=== PATIENT | female | born 1975 | race African-American/Black ===

== ENCOUNTER 2018-07-21 13:15 | Emergency (ER) | payer OTHER ==
[2018-07-21 13:41] VITALS: BP 119/94; PULSE 61; TEMP 99.1; BMI 31.4
--- NOTE | 2018-07-21 14:21 | PDOC ---
History of Present Illness - General Chief Complaint: Back Pain Stated Complaint: BACK PAIN Time Seen by Provider: 07/21/18 14:10 History Source: Patient Exam Limitations: Clinical Condition - History of Present Illness Initial Comments: 07/21/18 14:17 Patient with history of bulging disc present with complain of sudden onset of mid back pain which she describes as cramping pain since yesterday with no other symptoms. Patient also report missing her menstrual period last month. Denies recent trauma or injury to back. Timing/Duration: 24 hours Past History - Past Medical History Allergies/Adverse Reactions: Allergies Allergy/AdvReac Type Severity Reaction Status Date / Time shellfish derived Allergy Intermediate Itching Verified 07/21/18 13:36 tramadol AdvReac Intermediate confusion Verified 07/21/18 13:36 Home Medications: Ambulatory Orders NK [No Known Home Medication] 07/21/18 Asthma: No Cancer: No Cardiac Disorders: No COPD: No CHF: No Diabetes: No GI Disorders: No Disorders: No HTN: No Hypercholesterolemia: No Liver Disease: No Seizures: No Thyroid Disease: No Other medical history: DENIES. - Surgical History Abdominal Surgery: Yes (liposuction 2004) Orthopedic Surgery: Yes (carpal release 2006) - Suicide/Smoking/Psychosocial Hx Smoking History: Current every day smoker Have you smoked in the past 12 months: Yes Number of Cigarettes Smoked Daily: 3 Information on smoking cessation initiated: No Hx Alcohol Use: No Drug/Substance Use Hx: Yes Substance Use Type: Marijuana Hx Substance Use Treatment: No Review of Systems - Review of Systems Able to Perform ROS?: Yes Is the patient limited Mongolian proficient: No Constitutional: No: Chills, Fever HEENTM: No: Symptoms Reported Respiratory: No: Symptoms reported, Cough Cardiac (ROS): No: Chest Pain, Lightheadedness, Palpitations, Chest Tightness ABD/GI: Yes: Nausea. No: Constipated, Diarrhea, Vomiting Musculoskeletal: Yes: See HPI, Back Pain (mid back), Muscle Pain (mid back pain) . No: Muscle Weakness, Joint Stiffness All Other Systems: Reviewed and Negative *Physical Exam - Vital Signs Last Vital Signs Temp Pulse Resp BP Pulse Ox 99.1 F 61 19 119/94 100 07/21/18 13:36 07/21/18 13:36 07/21/18 13:36 07/21/18 13:36 07/21/18 13:36 - Physical Exam Comments: 07/21/18 14:18 GENERAL: Well developed, well nourished. Awake and alert. No acute distress. MUSCULOSKELETAL : Moderate discomfort point tenderness to lumbar spine of L2 and paravertebral muscle of L2-L5. Free range of motion of hip and lower back EXTREMITIES: No cyanosis. No clubbing. No edema. No calf tenderness. SKIN: Warm and dry. Normal capillary refill. No rashes. No jaundice. NEUROLOGICAL: Alert, awake, appropriate. No motor deficits in the lower extremities. Gait is normal without ataxia. PSYCHIATRIC: Cooperative. Good eye contact. Appropriate mood and affect. General Appearance: Yes: Nourished, Appropriately Dressed. No: Apparent Distress ED Treatment Course - RADIOLOGY Radiology Studies Ordered: Category Date Time Status SPINE-LUMBAR ONLY [RAD] Stat Radiology 07/21/18 14:10 Ordered Medical Decision Making - Medical Decision Making 07/21/18 14:20 Patient with history of bulging disc present with complain of mid back pain since yesterday without trauma or injury. Patient also with complain of nausea and missing last measure last month. Exam significant for tenderness over lumbar spine. HCG ordered to rule out . X-ray of lumbar spine if negative hCG 07/21/18 14:47 HCG positive. X-ray canceled. Tylenol 1 g by mouth for pain. Patient be discharged with orthopedist follow-up and follow-up with COMPUTER ARCHITECT *DC/Admit/Observation/Transfer Diagnosis at time of Disposition: test positive Back pain Qualifiers: Back pain location: thoracic back pain Chronicity: acute Back pain laterality: midline Qualified Code(s): M54.6 - Pain in thoracic spine - Discharge Dispostion Disposition: HOME Condition at time of disposition: Stable Decision to Admit order: No - Referrals Referrals: Isreal Arthur MD [Staff Physician] - Pratik Clark MD [Staff Physician] - - Patient Instructions Printed Discharge Instructions: Common Discomforts and Bodily Changes During Additional Instructions: Take Tylenol as needed for pain. Apply heat to back over area of pain 2-3 times a day for 5-10 minutes. Follow-up will referred OVEN HEATER and orthopedics for symptoms - Post Discharge Activity
[2018-07-21] MEDS ORDERED: ACETAMINOPHEN 500 MG TABLET (FP) PO ONE (14:47)
[2018-07-21] MEDS ORDERED: ACETAMINOPHEN 500 MG TABLET (FP) ONE (14:50)
== END 2018-07-21 15:19 | disposition home or self-care (01) ==
LOC: JERFT 13:15
DX: O26.891 Other specified pregnancy related conditions, first trimester (principal); M54.6 Pain in thoracic spine; Z3A.01 Less than 8 weeks gestation of pregnancy
CPT/HCPCS: 36415; 84702; 84703; 99281-25

== ENCOUNTER 2018-08-05 15:41 | Emergency (ER) | payer OTHER ==
[2018-08-05 15:52] VITALS: BP 117/78; PULSE 89; TEMP 99; BMI 30.5
--- NOTE | 2018-08-05 16:02 | PDOC ---
Rapid Medical Evaluation Chief Complaint: Pain, Acute Medical Evaluation: Allergies Allergy/AdvReac Type Severity Reaction Status Date / Time shellfish derived Allergy Intermediate Itching Verified 08/05/18 15:47 tramadol AdvReac Intermediate confusion Verified 08/05/18 15:47 Vital Signs Temp Pulse Resp BP Pulse Ox 99 F 89 16 117/78 100 08/05/18 15:48 08/05/18 15:48 08/05/18 15:48 08/05/18 15:48 08/05/18 15:48 08/05/18 15:57 I have performed a brief in-person evaluation of this patient. The patient presents with a chief complaint of: 9wks with right knee pain s/p fall today Pertinent physical exam findings: tender to anterior right knee I have ordered the following: right knee x-rays The patient will proceed to the ED for further evaluation. Discharge Disposition - Diagnosis Right knee pain Qualifiers: Chronicity: acute Qualified Code(s): M25.561 - Pain in right knee - Referrals - Patient Instructions - Post Discharge Activity
--- NOTE | 2018-08-05 16:26 | PDOC ---
History of Present Illness - General Chief Complaint: Pain, Acute Stated Complaint: INJURY Time Seen by Provider: 08/05/18 16:17 - History of Present Illness Initial Comments: 43-year-old 11 week gravid female without comorbidities presents for evaluation of right knee pain after a fall going up the steps yesterday. She has no other symptoms besides right knee pain. 08/05/18 16:23 Past History - Past Medical History Allergies/Adverse Reactions: Allergies Allergy/AdvReac Type Severity Reaction Status Date / Time shellfish derived Allergy Intermediate Itching Verified 08/05/18 15:47 tramadol AdvReac Intermediate confusion Verified 08/05/18 15:47 Home Medications: Ambulatory Orders NK [No Known Home Medication] 07/21/18 Asthma: No Cancer: No Cardiac Disorders: No COPD: No CHF: No Diabetes: No GI Disorders: No Disorders: No HTN: No Hypercholesterolemia: No Liver Disease: No Seizures: No Thyroid Disease: No - Surgical History Abdominal Surgery: Yes (liposuction 2004) Orthopedic Surgery: Yes (carpal release 2006) - Suicide/Smoking/Psychosocial Hx Smoking History: Current some day smoker Have you smoked in the past 12 months: Yes Number of Cigarettes Smoked Daily: 2 Information on smoking cessation initiated: Yes 'Breaking Loose' booklet given: 08/05/18 Hx Alcohol Use: No Drug/Substance Use Hx: Yes Substance Use Type: Marijuana Hx Substance Use Treatment: No Review of Systems - Review of Systems Musculoskeletal: Yes: See HPI, Joint Pain All Other Systems: Reviewed and Negative *Physical Exam - Vital Signs Last Vital Signs Temp Pulse Resp BP Pulse Ox 99 F 89 16 117/78 100 08/05/18 15:48 08/05/18 15:48 08/05/18 15:48 08/05/18 15:48 08/05/18 15:48 - Physical Exam Comments: 08/05/18 16:24 Right knee skin color and temperature are normal range of motion 0-90 with pain at terminal flexion. Full nonpainful range of motion of the hip and ankle. No instability. Mild posterior medial joint line tenderness. No other areas of tenderness. No patellofemoral crepitation. Negative straight leg raise test. Thigh and calf is soft and nontender. She's neurovascular intact. *DC/Admit/Observation/Transfer Diagnosis at time of Disposition: Knee contusion Right knee pain Qualifiers: Chronicity: acute Qualified Code(s): M25.561 - Pain in right knee - Discharge Dispostion Disposition: HOME Condition at time of disposition: Stable Decision to Admit order: No - Referrals Referrals: Artur Herron MD [Staff Physician] - - Patient Instructions Printed Discharge Instructions: Contusion Additional Instructions: He may weight-bear as tolerated with use of crutches. Please return to the emergency room should symptoms worsen or go unresolved. Please follow-up with orthopedic surgery for further evaluation and treatment options. Follow-up with orthopedic surgery one to 2 days. Make only take Tylenol for pain because you' re . - Post Discharge Activity
== END 2018-08-05 16:35 | disposition home or self-care (01) ==
LOC: JERFT 15:41
DX: M25.561 Pain in right knee (principal); W10.9XXA Fall (on) (from) unspecified stairs and steps, initial encounter; Y93.89 Activity, other specified; Y92.89 Other specified places as the place of occurrence of the external cause; S80.01XA Contusion of right knee, initial encounter; F17.210 Nicotine dependence, cigarettes, uncomplicated
CPT/HCPCS: 73562-TC-RT-FY; 99281-25

== ENCOUNTER 2018-10-13 22:43 | Emergency (ER) | payer OTHER ==
[2018-10-13 23:02] VITALS: BMI 33.3
--- NOTE | 2018-10-13 23:56 | PDOC ---
History of Present Illness - General Chief Complaint: Ear Problem Stated Complaint: UNABLE TO HEAR FROM LEFT EAR Time Seen by Provider: 10/13/18 23:38 History Source: Patient Exam Limitations: No Limitations - History of Present Illness Initial Comments: 10/13/18 23:51 Mrs. Perez is a 43-year-old female with no significant past medical history who presents emergency department with a complaint of difficulty hearing out of the left ear. Patient states her symptoms began several hours prior to arrival in the emergency department. She awoke from a nap with an inability to hear out of her left ear. Patient states that over the past few weeks she's had a congested feeling in the left ear. When she lay down to sleep she would notice difficulty hearing but when she sat up it would improve. Tonight despite sitting up she cannot hear out of the left ear. No tinnitus. No fevers or chills. No left ear pain. No direct trauma. No swimming. No prior episodes like this. PMH: Denies PSH: , liposuction Medication: Denies Social: Denies alcohol, drug, cigarette use ROS: GENERAL/CONSTITUTIONAL: No: fever, chills, weakness, loss of appetite. HEAD, EYES, EARS, NOSE AND THROAT: No: change in vision, ear pain, discharge, sore throat, throat swelling. CARDIOVASCULAR: No: chest pain, lightheadedness, palpitations, syncope RESPIRATORY: No: cough, shortness of breath, wheezing, hemoptysis, stridor. GASTROINTESTINAL: No: nausea, vomiting, diarrhea, abdominal cramping, rectal bleeding, constipation. GENITOURINARY: No: dysuria, hematuria, frequency, urgency, flank pain. MUSCULOSKELETAL: No: back pain, neck pain, joint pain, muscle swelling or pain SKIN AND BREASTS: No: lesions, pallor, rash or easy bruising. NEUROLOGIC: No: headache, vertigo, paresthesias, weakness ENDOCRINE: No: unexplained weight gain or loss HEMATOLOGIC/LYMPHATIC: No: anemia, easy bleeding, swelling nodes. PE: GENERAL: The patient is in no acute distress. HEAD: Normal with no signs of trauma. EYES: PERRLA, EOMI, sclera anicteric, conjunctiva clear. ENT: Ears normal, nares patent, oropharynx clear without exudates. Moist mucous membranes. NECK: Normal range of motion, supple without lymphadenopathy, JVD, or masses. LUNGS: Breath sounds equal, clear to auscultation bilaterally. No wheezes, and no crackles. HEART:Regular rate and rhythm, normal S1 and S2 without murmur, rub or gallop. ABDOMEN: Soft, nontender, normoactive bowel sounds. No guarding, no rebound. No masses palpable. EXTREMITIES: Normal range of motion, no edema. No clubbing or cyanosis. No erythema, or tenderness. NEUROLOGICAL: Cranial nerves II through XII grossly intact. Normal speech. No focal neurological deficits. MUSCULOSKELETAL: Back non-tender to palpation, no CVA tenderness SKIN: Warm, Dry, normal turgor, no rashes or lesions noted. Past History - Past Medical History Allergies/Adverse Reactions: Allergies Allergy/AdvReac Type Severity Reaction Status Date / Time shellfish derived Allergy Intermediate Itching Verified 10/13/18 23:01 tramadol AdvReac Intermediate confusion Verified 10/13/18 23:01 Home Medications: Ambulatory Orders Carbamide Peroxide 6.5% [Debrox -] 10 drop BID PRN 4 Days #1 bottle 10/13/18 Asthma: No Cancer: No Cardiac Disorders: No COPD: No CHF: No Diabetes: No GI Disorders: No Disorders: No HTN: No Hypercholesterolemia: No Liver Disease: No Seizures: No Thyroid Disease: No - Surgical History Abdominal Surgery: Yes (liposuction 2004) Orthopedic Surgery: Yes (carpal release 2006) - Suicide/Smoking/Psychosocial Hx Smoking History: Current every day smoker Have you smoked in the past 12 months: Yes Number of Cigarettes Smoked Daily: 3 Information on smoking cessation initiated: No 'Breaking Loose' booklet given: 08/05/18 Hx Alcohol Use: No Drug/Substance Use Hx: No Substance Use Type: None Hx Substance Use Treatment: No *Physical Exam - Vital Signs Last Vital Signs Temp Pulse Resp BP Pulse Ox 98.6 F 98 H 18 110/65 98 10/13/18 22:58 10/13/18 22:58 10/13/18 22:58 10/13/18 22:58 10/13/18 22:58 Moderate Sedation - Procedure Monitoring Vital Signs: Procedure Monitoring Vital Signs Temperature 98.6 F 10/13/18 22:58 Pulse Rate 98 H 10/13/18 22:58 Respiratory Rate 18 10/13/18 22:58 Blood Pressure 110/65 10/13/18 22:58 O2 Sat by Pulse Oximetry (%) 98 10/13/18 22:58 Medical Decision Making - Medical Decision Making 10/13/18 23:56 Examination is consistent with cerumen impaction. Will plan to discharge to home. Will ask patient to use Debrox *DC/Admit/Observation/Transfer Diagnosis at time of Disposition: Impacted cerumen of left ear - Discharge Dispostion Disposition: HOME Condition at time of disposition: Stable Decision to Admit order: No - Referrals Referrals: Yunior Bell MD [Staff Physician] - - Patient Instructions Printed Discharge Instructions: DI for Cerumen Impaction Additional Instructions: Thank you for coming in to the ER today Please use Debrox to remove the build up of wax in the left ear Please monitor for fevers, chills, pain in the left ear If your ear does not improve, please follow up with an ENT Return to the Er for any other concerns or complaints - Post Discharge Activity
[2018-10-14 01:09] VITALS: BP 116/71; PULSE 85; TEMP 98.5
== END 2018-10-14 01:15 | disposition home or self-care (01) ==
LOC: JER 22:43
DX: H61.22 Impacted cerumen, left ear (principal)
CPT/HCPCS: 99282-25

== ENCOUNTER 2019-01-27 15:00 | Inpatient (IN) | payer OTHER ==
[2019-01-27] MEDS ORDERED: ELECTROLYTE-148 SOLN 500 ML IV ONE (15:58)
[2019-01-27] MEDS ORDERED: CITRIC ACID/SODIUM CITRATE 30 ML UNIT-DOSE CUP PO ONE (15:58)
[2019-01-27] MEDS ORDERED: ELECTROLYTE-148 SOLN 1,000 ML IV SCH (16:00)
--- NOTE | 2019-01-27 16:06 | HP ---
Past Medical History - Admission Chief Complaint: RLTCS, BTL History of Present Illness: 43yo @ 38wks here for RLTCS, BTL Preg c/b GHTN- no meds, recently developed at 36 weeks. Last PIH labs normal 2 days ago. Previous Pr/Cr ratio negative Denies VB/LOF. No ctx. +FM. No NOVOA, no N/V. No RUQ pain. 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 Weeks Gestation by Dates: 38.1 ...EDC by Sono: 02/09/19 - Past Surgical History Past Surgical History: Yes: Hx Myomectomy: No Hx Transabdominal Cerclage: No - Smoking History Smoking history: Current every day smoker Have you smoked in the past 12 months: Yes Aproximately how many cigarettes per day: 3 - Alcohol/Substance Use Hx Alcohol Use: No Home Medications - Allergies Allergies/Adverse Reactions: Allergies Allergy/AdvReac Type Severity Reaction Status Date / Time shellfish derived Allergy Intermediate Itching Verified 01/27/19 15:55 Gadolinium-Containing AdvReac Intermediate Vomiting Verified 01/27/19 15:55 Contrast Medi tramadol AdvReac Intermediate confusion Verified 01/27/19 15:55 - Home Medications Home Medications: Ambulatory Orders NK [No Known Home Medication] 10/14/18 Family Disease History - Family Disease History Family Disease History: Diabetes: Mother (living, ), Heart Disease: Mother, Other: Father (living, ), Mother, Brother (one -living - healthy), Sister (one - living - hx etoh/drugs,Crohns), Son (age 9), Daughter (age 14) Review of Systems - Review of Systems Constitutional: denies: No Symptoms, Chills, Diaphoresis, Fever, Lethargy, Loss of Appetite, Malaise, Night Sweats, Unintentional Wgt. Loss, Weakness, Other Neck: denies: No Symptoms, Decreased ROM, Lumps, Pain on Movement, Stiffness, Swollen Glands, Tenderness, Other Cardiovascular: denies: No Symptoms, Chest Pain, Edema, Palpitations, Shortness of Breath, Other Respiratory: denies: No Symptoms, Cough, Exercise Intolerance, Hemoptysis, Orthopnea, PND, Snoring, SOB, SOB on Exertion, Wheezing, Other Gastrointestinal: denies: No Symptoms, Abdominal Pain, Bloating, Constipation, Diarrhea, Dysphagia, Indigestion, Melena, Nausea, Rectal Bleeding, Vomiting, Vomiting Blood, Other Genitourinary: denies: No Symptoms, Burning, Discharge, Dysuria, Flank Pain, Frequency, Hematuria, Incontinence, Lesions, Menses, Pain, Testicular Mass, Testicular Pain, Testicular Swelling, Urgency, Vaginal Bleeding, Other Physical Exam - Maternity Constitutional: Yes: Well Nourished Eyes: Yes: WNL, Conjunctiva Clear, EOM Intact - Abdominal Exam/OB Number of Fetuses: Single Presentation: Vertex Contractions: No Regularity: Irritability Intensity: Unaware Category: I Accelerations: Uniform Decelerations: None - Vaginal Exam/OB Vaginal Bleediing: No Speculum Exam: No Amniotic Membrane Status: Intact Presentation: Vertex/Position - Physical Exam Edema: No Problem List - Problems (1) Gestational hypertension Code(s): O13.9 - GESTATIONAL HTN W/O SIGNIFICANT PROTEINURIA, UNSP TRIMESTER Assessment/Plan 43yo @ 38.1wks here for ALEX MYERS c/b Gestational HTN Admit to L&D NPO, IVFs Ancef SCDs Will monitor BPs, may need BP meds PP Risk of procedure including bleeding, infections, injury to bladder/bowel/tubes/ ovaries/vessels and risk of permanency with tubal ligation reviewed. All questions answered. Consent signed. Proceed to OR for RLTCS, BTAmbrose Mendoza MD
[2019-01-27 16:28] VITALS: BMI 39.4
[2019-01-27] MEDS ORDERED: ONDANSETRON 4 MG/2 ML VIAL IVPUSH PRN (17:25)
[2019-01-27] MEDS ORDERED: morphine SULFATE/Preservative Free 0.5 MG/ML (1cc Syringe) ONE (17:44)
[2019-01-27] MEDS ORDERED: KETOROLAC TROMETHAMINE 30 MG/1 ML VIAL ONE (18:05)
[2019-01-27] MEDS ORDERED: PHENYLEPHRINE HCL 10 MG/1 ML SINGLE DOSE VIAL ONE (18:26)
[2019-01-27] MEDS ORDERED: MIDAZOLAM HCL 2 MG/2 ML SINGLE DOSE VIAL ONE ×2 (18:32)
[2019-01-27] MEDS ORDERED: PROPOFOL 20 ML ONE (18:55)
[2019-01-27] MEDS ORDERED: METHYLERGONOVINE MALEATE 0.2 MG/1 ML AMP IM PRN (19:10)
--- NOTE | 2019-01-27 19:13 | OP ---
Operative Note - Note: Operative Date: 01/27/19 Pre-Operative Diagnosis: 38weeks gestation, Gestational HTN, prior C/S x 2, desires permanent sterilization Operation: RLTCS, BTL Findings: VFI, VASILE position. No nuchal or meconium. Apgars 9/9. Weight pending. Normal tubes and ovaries bilaterally Surgeon: Pati Mendoza Manager Mining: Buddy Sexton Anesthesiologist/BEATER BOSS: Andriy Dolan Anesthesia: Spinal Estimated Blood Loss (mls): 500 Drains, Volume Out (mls): 100 Operative Report Dictated: Yes
[2019-01-27] MEDS ORDERED: OXYTOCIN 20 UNITS in 0.9% NS 20 UNIT/1,000 ML INFUS.BAG IV SCH (19:15)
[2019-01-27] MEDS ORDERED: OXYTOCIN 20 UNITS in 0.9% NS 20 UNIT/1,000 ML INFUS.BAG IV ONE (20:08)
[2019-01-27] MEDS: FERROUS SO4 325 MG TABLET (FP) PO SCH (23:06)
[2019-01-28] MEDS: IBUPROFEN 600 MG TABLET (FP) PO PRN ×3 (08:09→22:20)
[2019-01-28] MEDS: ACETAMINOPHEN 325 MG TABLET (FP) PO PRN ×3 (08:09→22:20)
[2019-01-28 08:21] LABS: BASO % 0.3 % (0-2.0); EOS % 0.5 % (0-4.5); HEMATOCRIT 25.4 % (32.4-45.2); HEMOGLOBIN 8.7 GM/dL (10.7-15.3); LYMPH % 13.6 % (8-40); MCH 29.9 pg (25.7-33.7); MCHC 34.2 g/dl (32.0-36.0); MEAN CELL VOLUME 87.5 fl (80-96); MONO % 8.4 % (3.8-10.2); NEUT % 77.2 % (42.8-82.8); PLATELET COUNT 237 K/MM3 (134-434); RDW 14.9 % (11.6-15.6); WHITE BLOOD COUNT 10.4 K/mm3 (4.0-10.0)
--- NOTE | 2019-01-28 09:03 | PN ---
Post Progress Note Post Day: 1 Type of Delivery: Repeat C/S Vital Signs: Vital Signs Temperature 98.1 F 01/28/19 06:04 Pulse Rate 77 01/28/19 06:04 Respiratory Rate 20 01/28/19 07:00 Blood Pressure 142/84 01/28/19 06:04 O2 Sat by Pulse Oximetry (%) 97 01/27/19 20:15 Uterus: Yes: Fundus below umbilicus Incision: Yes: Dressing dry and intact, Reynold intact Abdomen/GI: Yes: Abdomen soft Lochia: Yes: Rubra Lochia, amount: Small Extremities: Yes: Calves non-tender Problem List - Problems (1) Gestational hypertension Code(s): O13.9 - GESTATIONAL HTN W/O SIGNIFICANT PROTEINURIA, UNSP TRIMESTER Assessment/Plan 43yo s/p RLTCS, BTL c/b Gestational HTN Routine PP care OOB, ambulate Vitals reviewed, cont to monitor Labs pending Anticipate d/c to home by POD#4 Jayne Mendoza MD
[2019-01-28] MEDS: PRENATAL VITAMINS W/ FOLIC ACID TABLET (FP) PO SCH (09:05)
[2019-01-28] MEDS: FERROUS SO4 325 MG TABLET (FP) PO SCH ×2 (09:05→22:20)
--- NOTE | 2019-01-28 11:28 | PN ---
Progress Note (short form) - Note Progress Note: Post op day#1.S/P C Section under spinal anesthesia with duramorph uneventful.Patient stable and has little pain for which she is on medication.no any anesthesia related problem.Patient Dc from the anesthesia care.
--- NOTE | 2019-01-28 13:19 | OP ---
DATE OF OPERATION: 01/27/2019 PREOPERATIVE DIAGNOSES: A 38-week gestation, gestational hypertension, prior section x2, and desires permanent sterilization. POSTOPERATIVE DIAGNOSES: A 38-week gestation, gestational hypertension, prior section x2, and desires permanent sterilization. PROCEDURE: Repeat low transverse section, bilateral tubal ligation. ANESTHESIA: Spinal. SURGEON: Pati Mendoza MD SAND MILL OPERATOR CORE SAND: SUMA Sutton ANESTHESIOLOGIST: Andiry Dolan MD FINDINGS: Viable male infant, VASILE position. No nuchal. No meconium. Apgars 9 and 9. Weight pending. Normal tubes and ovaries bilaterally. ESTIMATED BLOOD LOSS: 500. INTRAVENOUS FLUIDS: Per anesthesia record. URINE OUTPUT: Clear urine 100 mL at the end of the procedure. COMPLICATIONS: None. CONDITION: Stable to recovery room. NATURE OF THE PROCEDURE: After the appropriate consents were signed, patient was taken to the operating room where spinal anesthesia was administered. Fiore catheter was inserted prior to entry into the operating room. The abdomen was prepped and draped in the normal sterile fashion. Timeout was performed, confirming correct patient and procedure. Pfannenstiel skin incision was made through the prior incision and carried down to the underlying layers until the fascia was nicked in the midline. Fascia was then extended laterally with the Qiu scissors. The inferior aspect of the fascia was grasped with the Cal clamps, tented upwards, and the rectus muscles were dissected off bluntly. Attention was then paid to the superior aspect which was taken down in a similar fashion. The peritoneum was entered cautiously as there were adhesions. The peritoneum was grasped with the hemostats x2, tented upwards, transilluminated with the Metzenbaum scissors. Noted to be clear, and then nicked in the midline and then extended manually. Bladder blade was inserted. There was not sufficient space for delivery. The rectus muscles had to be further using the Bovie with good hemostasis. The vesicouterine reflection was grasped with the smooth forceps, tented upwards , nicked with the Metzenbaum's, then extended laterally with the Metzenbaum's. Bladder flap was then created digitally. The bladder blade was reinserted. The uterus was incised in a low transverse fashion. Clear amniotic fluid was noted. Head was delivered without any difficulty, as was the remaining body. The cord was clamped and cut, and the infant was handed off to the awaiting pediatric staff. The placenta was then removed manually. The uterus was cleared of all clot and debris. We were unable to exteriorize the uterus secondary to space. The uterine incision was closed in a single imbricating layer with a 1-0 Vicryl with good hemostasis. Attention was then paid to the adnexa for the tubal ligation. The left fallopian tube was grasped with the Orland, carried through to the fimbriated edges, and grasped again in the midline and was suture ligated using a 1-0 plain in the modified Esther fashion. Tubal segment was ligated with the Metzenbaum scissors. The tubal stumps were cauterized with the Bovie. Tubal stump was sent off for pathology. Attention was then paid to the right fallopian tube which was taken down in a similar fashion. Both bite sites were noted to be hemostatic. Attention was then paid back to the hysterotomy which was also noted to be hemostatic. Bladder blade was removed. The rectus muscles were reapproximated with a 2-0 chromic. The fascia was reapproximated with a 0 Vicryl. The skin was closed with carey. Sponge count and needle counts were correct x3. Patient received 2 g of Ancef at the start of the procedure. MD ELSIE GIBBONS/[id number] MTDD
[2019-01-28] MEDS ORDERED: BISACODYL 10 MG SUPP.RECT RC PRN (19:10)
[2019-01-28] MEDS: SIMETHICONE 80 MG TAB.CHEW (FP) PO PRN (22:20)
--- NOTE | 2019-01-29 06:25 | PN ---
Progress Note (short form) - Note Progress Note: pod 2 s/p c/s doing well, no c./o, no dizziness , no excess vaginal bleeding, c/ o head ache at back of her head with walking CBC, BMP 01/28/19 07:30 Last Vital Signs Temp Pulse Resp BP Pulse Ox 98.7 F 92 H 20 133/86 97 01/29/19 06:00 01/29/19 06:00 01/29/19 06:00 01/29/19 06:00 01/27/19 20:15 abdomen soft, no distension, , no cvc uterus firm lochia mild no calf tenderness plan ambulate, cbc increase po fluid anesthesia evaluation r/o spinal headache
[2019-01-29] MEDS: IBUPROFEN 600 MG TABLET (FP) PO PRN ×2 (07:28→21:10)
[2019-01-29] MEDS: SIMETHICONE 80 MG TAB.CHEW (FP) PO PRN (07:28)
[2019-01-29] MEDS: oxyCODONE HCL 5 MG TABLET PO PRN ×3 (07:31→21:11)
[2019-01-29] MEDS: PRENATAL VITAMINS W/ FOLIC ACID TABLET (FP) PO SCH (10:09)
[2019-01-29] MEDS: FERROUS SO4 325 MG TABLET (FP) PO SCH ×2 (10:09→21:10)
--- NOTE | 2019-01-29 11:51 | PN ---
Progress Note (short form) - Note Progress Note: 43F C section under spinal anesthetic (25g needle) c/o postural posterior headache. Pt has history of headaches and known history of cervical spine stenosis. Pt was complaining of headache pre operatively prior to spinal. Although it is possible that she has a post dural puncture headache, it is one of several possible reasons for her current presentation. I recommend trying conservative measures first - bedrest, lying flat, stool softeners, caffeine, fioricet.
[2019-01-29] MEDS: ACETAMINOPHEN/CAFFEINE/BUTALBITAL 1 TAB PO PRN ×2 (12:09→19:15)
[2019-01-29 14:59] LABS: BASO % 0.7 % (0-2.0); EOS % 1.4 % (0-4.5); HEMATOCRIT 25.3 % (32.4-45.2); HEMOGLOBIN 8.5 GM/dL (10.7-15.3); LYMPH % 22.9 % (8-40); MCH 29.9 pg (25.7-33.7); MCHC 33.7 g/dl (32.0-36.0); MEAN CELL VOLUME 88.7 fl (80-96); MEAN PLT VOLUME 7.8 fl (7.5-11.1); MONO % 10.1 % (3.8-10.2); NEUT % 64.9 % (42.8-82.8); PLATELET COUNT 260 K/MM3 (134-434); RBC 2.85 M/mm3 (3.60-5.2); WHITE BLOOD COUNT 11.2 K/mm3 (4.0-10.0)
[2019-01-29] MEDS ORDERED: LABETALOL HCL 200 MG TABLET (FP) PO PRN (23:14)
[2019-01-30] MEDS: ACETAMINOPHEN/CAFFEINE/BUTALBITAL 1 TAB PO PRN ×3 (02:01→17:17)
[2019-01-30 07:35] LABS: BASO % 0.8 % (0-2.0); EOS % 0.8 % (0-4.5); HEMATOCRIT 24.3 % (32.4-45.2); HEMOGLOBIN 8.3 GM/dL (10.7-15.3); LYMPH % 19.1 % (8-40); MCH 29.8 pg (25.7-33.7); MEAN CELL VOLUME 87.8 fl (80-96); MEAN PLT VOLUME 7.8 fl (7.5-11.1); MONO % 8.8 % (3.8-10.2); NEUT % 70.5 % (42.8-82.8); PLATELET COUNT 262 K/MM3 (134-434); RBC 2.77 M/mm3 (3.60-5.2); WHITE BLOOD COUNT 9.7 K/mm3 (4.0-10.0)
[2019-01-30] MEDS: PRENATAL VITAMINS W/ FOLIC ACID TABLET (FP) PO SCH (10:19)
[2019-01-30] MEDS: FERROUS SO4 325 MG TABLET (FP) PO SCH ×2 (10:19→22:18)
[2019-01-30] MEDS: oxyCODONE HCL 5 MG TABLET PO PRN ×2 (12:28→20:11)
--- NOTE | 2019-01-30 15:36 | PN ---
Progress Note (short form) - Note Progress Note: pod 3 s/p c/s , still c/o headache, no blurred vision CBC, BMP 01/30/19 06:00 Last Vital Signs Temp Pulse Resp BP Pulse Ox 97.6 F 95 H 20 143/84 97 01/30/19 06:00 01/30/19 06:00 01/30/19 06:00 01/30/19 06:00 01/27/19 20:15 abdomen soft, no distension, no cva incision dry, clean, healin well,\ no calf tenderness impression, headache, possible related to spinal tap seen by anesthesia, advised conservative management plan neuro consult mild elevation of BP will get renal to see here anemia, no dizziness , advised iron, vit
--- NOTE | 2019-01-30 16:18 | CONSULT ---
Consult - text type - Consultation Consultation Note: NEUROLOGY CONSULTATION is greatly appreciated: Events reviewed and discussed with Dr. Clark and RN's. This 43 yo RH m woman is 3 days post- her 3rd child by and epidural anesthesia. PMH of episodic headaches through most of her adult life with occasional "migraines" with nausea and photophobia. Can see "black dots or stars." One day post- she developed a pressing headache over the frontal and occipital region with episodic photophobia. No nausea. Worse when sitting up. Resolves when she lays down. Resting in bed now without c/o headache. Did "see dots" earlier today. EXAM: Obese. Neck supple. Spinal site clear. BP up to 157 systolic NEURO: MS/Speech: Normal CN: II-XII: normal Motor: Nor drift or tremor. Normal strength, bulk tone and reflexes. Toes downgoing Coord: Normal Sensory: Normal Gait: Deferred. IMP: Normal neurological exam Positional qualilty of headache supports a spinal headache. Underlying Migraine Disorder. SUGGEST: Continue bedrest and analgesics. If headache recurs try Sumatriptan 6 mg SQ or 100 mg PO. Response to Rx would strongly support a migrainous etiology. MRI of brain and blood patch Agree with beta-alexandra (Try Nadolol 40 mg PO qd) for both HTN and migraine prophylaxis. Thank you very much, Barrington Lopez MD
[2019-01-30 16:34] LABS: EPI CELLS 3.2 /HPF (0-5); HYALINE CASTS 1 /hpf (0-8); PH,URINE 7.5 (5.0-8.0); URINE APPEARANCE CLEAR; URINE BACTERIA 6.084 /hpf (NEGATIVE); URINE BILIRUBIN NEGATIVE (<2.0 mg/dL); URINE COLOR YELLOW; URINE GLUCOSE (UA) NEGATIVE (NEGATIVE); URINE KETONE NEGATIVE (NEGATIVE); URINE LEUK ESTERASE NEGATIVE (NEGATIVE); URINE NITRITE NEGATIVE (NEGATIVE); URINE PROTEIN NEGATIVE (NEGATIVE); URINE RBC 83 /hpf (0-4); URINE UROBILINOGEN 0.2 mg/dL (0.2-1.0); URINE WBC 2 /hpf (0-5)
--- NOTE | 2019-01-30 18:34 | PN ---
Progress Note (short form) - Note Progress Note: Patient continued to have headache that radiates from front to the back and down the neck.Headache gets worst with sitting up and getting up.Conservative treatment did not elevate the headache so decided to do the epidural blood patch as it seems like post dural puncture headache.Patient,s lab work is fine.Risks including headache,benefits and alternatives discussed with the patient.Patient understands and accepts it.P105,BP130/73 before the procedure and P100,BP157/75 after the procedure.Epidural done under sterile conditions at L3-L4 using 20G touhy needle 20 mls of patient,s own blood drawn under sterile conditions from left ACF injected through epidural needle.Patient felt the backache but headache susided.Advised 30 minutes of bed rest and slowly she can ambulate again.
[2019-01-30] MEDS: SIMETHICONE 80 MG TAB.CHEW (FP) PO PRN (20:11)
[2019-01-30] MEDS: ACETAMINOPHEN 325 MG TABLET (FP) PO PRN (23:40)
--- NOTE | 2019-01-31 09:14 | CONSULT ---
Consult - text type - Consultation Consultation Note: Renal Consult for Hypertension This is a 43 year old woman with hx of Headaches who presented with peripartum and hypertension. Denies any personal hx of hypertension. No family history of HTN in 1st degree relatives. Was told that her BP was high at the end of her . Was not on any medications. Has what appears to be a spinal headache after now resolved with blood patch. No CP, SOB, Abd pain, N/V/D. No leg swelling. No frothy urine. PMhx: as above Allergies: as listed in EMR Family Hx: NC Social Hx: No T/A/D ROS: As per HPI, all other pertinent ros negative Vital Signs Temperature 98.6 F 01/31/19 05:42 Pulse Rate 89 01/31/19 05:42 Respiratory Rate 20 01/31/19 05:42 Blood Pressure 138/71 01/31/19 05:42 O2 Sat by Pulse Oximetry (%) 97 01/27/19 20:15 Home Medications Medication Instructions Recorded Ibuprofen [Motrin -] 600 mg PO QID PRN #28 tablet 01/28/19 Oxycodone HCl/Acetaminophen 1 - 2 tab PO Q6H PRN #20 tab MDD 4 01/28/19 [Percocet 5-325 mg Tablet -] Intake & Output 01/28/19 01/29/19 01/30/19 01/31/19 23:59 23:59 23:59 23:59 Intake Total 2000 Output Total 2100 Balance -100 NAD awake and alert neck supple, no JVD RRR, no M/R CTA, no rales or wheeze soft NT/ND CBC, BMP 01/30/19 06:00 Current Medications Acetaminophen (Tylenol -) 650 mg PO Q4H PRN PRN Reason: FEVER Last Admin: 01/30/19 23:40 Dose: 650 mg Acetaminophen/Butalbital/Caffeine (Fioricet -) 1 tablet PO Q6H PRN PRN Reason: HEADACHE Last Admin: 01/30/19 17:17 Dose: 1 tablet Bisacodyl (Dulcolax Suppository -) 10 mg RC PRN PRN PRN Reason: CONSTIPATION Diphenhydramine HCl (Benadryl Injection -) 25 mg IVPUSH Q4H PRN PRN Reason: Pruritis Last Admin: 01/28/19 03:56 Dose: 25 mg Ferrous Sulfate (Feosol -) 325 mg PO BID [facility] Last Admin: 01/30/19 22:18 Dose: 325 mg Parenteral Electrolytes (Plasma-Lyte 148 -) 1,000 mls @ 125 mls/hr IV ASDIR LEILANI Last Admin: 01/27/19 16:15 Dose: 125 mls/hr Oxytocin/Sodium Chloride (Normal Saline+20 Units Oxytocin -) 20 unit in 1,000 mls @ 125 mls/hr IV ASDIR [facility] Ibuprofen (Motrin -) 600 mg PO Q4H PRN PRN Reason: PAIN LEVEL 1 - 3 Last Admin: 01/29/19 21:10 Dose: 600 mg Labetalol HCl (Normodyne -) 200 mg PO Q6H PRN PRN Reason: HYPERTENSION Last Admin: 01/30/19 02:12 Dose: 200 mg Methylergonovine Maleate (Methergine Injection -) 0.2 mg IM Q4H PRN PRN Reason: Excessive Bleeding (L&D) Ondansetron HCl (Zofran Injection) 4 mg IVPUSH Q4H PRN PRN Reason: NAUSEA Oxycodone HCl (Roxicodone -) 5 mg PO Q4H PRN PRN Reason: PAIN LEVEL 4 - 6 Last Admin: 01/30/19 20:11 Dose: 5 mg Multivit/Folic Acid/Iron ( Vitamins (Sjr) -) 1 tab PO DAILY [facility] Last Admin: 01/30/19 10:19 Dose: 1 tab Simethicone (Mylicon -) 80 mg PO Q4H PRN PRN Reason: GAS Last Admin: 01/30/19 20:11 Dose: 80 mg 43 year old woman with hx of Headaches who presented with peripartum and hypertension. Denies any personal hx of hypertension. # Hypertension likely induced hypertension +/- pain and less likely pre-eclampsia/HELLP syndrome #Headache # state BP has been better since NOVOA improved would monitor BP for 6 more hours in the hospital if BP consistently < 150/90 can d/c off medications with outpatient follow up in 2 weeks, if higher will likely need antihypertensive on discharge discussed importance of low salt diet and minimization of caffeine drinks pain control as per neurology pt asked to keep log of BP at home Thank you Will follow Adolfo Chavez DO
[2019-01-31 09:30] LABS: ALBUMIN 2.6 g/dl (3.4-5.0); ALK PHOS 109 U/L (45-117); ANION GAP 10 MMOL/L (8-16); BILIRUBIN,TOTAL 0.2 mg/dL (0.2-1); BLOOD UREA NITROGEN 6 mg/dL (7-18); CALCIUM 8.6 mg/dL (8.5-10.1); CHLORIDE 107 mmol/L (98-107); CO2 21 mmol/L (21-32); CREATININE 0.7 mg/dL (0.55-1.3); GLUCOSE,RANDOM 93 mg/dL (74-106); POTASSIUM 3.9 mmol/L (3.5-5.1); SGOT/AST 19 U/L (15-37); SGPT/ALT 17 U/L (13-61); SODIUM 139 mmol/L (136-145); TOT PROT 6.5 g/dl (6.4-8.2)
[2019-01-31] MEDS: FERROUS SO4 325 MG TABLET (FP) PO SCH (09:44)
[2019-01-31] MEDS: PRENATAL VITAMINS W/ FOLIC ACID TABLET (FP) PO SCH (09:44)
[2019-01-31] MEDS: ACETAMINOPHEN 325 MG TABLET (FP) PO PRN ×2 (09:44→14:10)
[2019-01-31 12:25] VITALS: TEMP 98.8
--- NOTE | 2019-01-31 13:05 | PN ---
Progress Note (short form) - Note Progress Note: pod 4 doing well, no more headache after the blood patch CBC, BMP 01/30/19 06:00 01/31/19 06:00 Last Vital Signs Temp Pulse Resp BP Pulse Ox 98.8 F 96 H 20 129/68 97 01/31/19 09:00 01/31/19 09:00 01/31/19 09:00 01/31/19 09:00 01/27/19 20:15 abdomen soft, no distension, no cva incision dry, clean no calf tenderness impression bp normal headache gone anemia symptomatic ,advised iron, vit
[2019-01-31 14:48] VITALS: BP 127/76; PULSE 91
--- NOTE | 2019-02-02 15:35 | PATH ---
Surgical Pathology Report Patient Name: ALYSSA MATTA [facility]. Rec. #: [id number] /Age/Gender: 1975 (Age: 43) / F Account: [id number] Location: [facility] OBS/FORM TAMPER Taken: 01/27/2019 Received: 01/28/2019 Reported: 02/02/2019 Physicians: Alyssa Mendoza Specimen(s) Received A: PLACENTA B: LEFT FALLOPIAN TUBE C: RIGHT FALLOPIAN TUBE Clinical History , 38 weeks and 1 day Final Diagnosis A. PLACENTA, DELIVERY: SMALL (381 gram) FOCALLY DISRUPTED THIRD TRIMESTER PLACENTA WITH SUBCHORIONIC FIBRIN DEPOSITION, THREE VESSEL UMBILICAL CORD AND UNREMARKABLE PLACENTAL MEMBRANES. B. LEFT FALLOPIAN TUBE, PARTIAL SALPINGECTOMY: FULL LUMINAL PORTION OF UNREMARKABLE FALLOPIAN TUBE. C. RIGHT FALLOPIAN TUBE, PARTIAL SALPINGECTOMY: FULL LUMINAL PORTION OF UNREMARKABLE FALLOPIAN TUBE. Electronically Signed Dheeraj Cummings M.D. Gross Description A. The specimen is received fresh labeled placenta and is a 381 gram, 14.5 x 13.0 x 3.0 cm. placenta with attached membranes and umbilical cord. The attached membranes are brannon, translucent with focal opacities and insert marginally. The umbilical cord measures 40 cm. in length and averages 1.2 cm. in diameter. The cord inserts eccentrically, 2 cm. to the nearest margin. No true knots or strictures are identified. Cut surface of the umbilical cord reveals 3 vessels. The surface is byrd blue with moderate fibrin deposition and appropriate caliber vessels. The maternal surface is red-brown with focal defects. Sectioning reveals red-brown, spongy parenchyma. No lesions are identified. Strapping Machine Tender sections are submitted in three cassettes as follows: 1- membrane rolls and umbilical cord; 2-3- full thickness sections of placenta. B. Received in formalin labeled "fallopian tube left," is a 1.7 cm in length portion of fallopian tube. No fimbria are present. The outer surface is brannon-le and smooth. Sectioning reveals an unremarkable lumen. Strapping Machine Tender sections are submitted in one cassette. C. Received in formalin labeled "right fallopian tube," is a 0.6 cm in length portion of fallopian tube. No fimbria are present. The outer surface is brannon-le and smooth. Sectioning reveals an unremarkable lumen. The specimen is bisected and entirely submitted in one cassette. /02/01/2019 saudi02/01/2019
--- NOTE | 2019-03-26 15:28 | DS ---
Physical Examination Vital Signs: Vital Signs Temperature 98.8 F 01/31/19 09:00 Pulse Rate 91 H 01/31/19 14:00 Respiratory Rate 20 01/31/19 14:00 Blood Pressure 127/76 01/31/19 14:00 O2 Sat by Pulse Oximetry (%) 97 01/27/19 20:15 Constitutional: Yes: Well Nourished, No Distress, Calm Eyes: Yes: WNL, Conjunctiva Clear, EOM Intact HENT: Yes: WNL, Atraumatic, Normocephalic Neck: Yes: WNL, Supple, Trachea Midline Cardiovascular: Yes: WNL, Regular Rate and Rhythm Respiratory: Yes: WNL, Regular, CTA Bilaterally Gastrointestinal: Yes: WNL, Normal Bowel Sounds Musculoskeletal: Yes: WNL Extremities: Yes: WNL Edema: No Integumentary: Yes: WNL Neurological: Yes: WNL, Alert, Oriented ...Motor Strength: WNL Psychiatric: Yes: WNL Labs: CBC, BMP 01/30/19 06:00 01/31/19 06:00 Discharge Summary Reason For Visit: Procedures: Principal: RLTCS Other Procedures: Blood Patch Hospital Course: The patient presented for a scheduled RLTCS She had an uncomplicated RLTCS Postoperatively she suffered headaches and was treated for a spinal headache with relief from a blood patch She met all milestones and was discharged home on POD#4 M. MD Kelly Condition: Stable - Instructions Diet, Activity, Other Instructions: Regular Diet Follow up in one week for a blood pressure check in the clinic Call clinic for appt for 02/04/19 for staple removal; Call Dr Chavez's office for follow up appointment within 2 weeks; Call Dr Lopez's office for follow up appointment within 2 weeks. Call clinic or go to emergency room if c/ o headache, blurred vision, or epigastric discomfort. Referrals: Barrington Lopez MD [Staff Physician] - Pati Mendoza MD [Staff Physician] - Adolfo Chavez MD [Staff Physician] - Disposition: HOME - Home Medications Comprehensive Discharge Medication List: Ambulatory Orders Ibuprofen [Motrin -] 600 mg PO QID PRN #28 tablet 01/28/19 Oxycodone HCl/Acetaminophen [Percocet 5-325 mg Tablet -] 1 - 2 tab PO Q6H PRN # 20 tab MDD 4 01/28/19
== END 2019-01-31 14:50 | disposition home or self-care (01) | DRG 540 ==
LOC: JLDR 15:00 → J3W 21:00
PROVIDERS: ADMIT Obstetrics & Gynecology; ATTEND Obstetrics & Gynecology
PROC: 10D00Z1 Extraction of Products of Conception, Low, Open Approach (ICD-10-PCS; principal; 2019-01-27)
PROC: 0UL70ZZ Occlusion of Bilateral Fallopian Tubes, Open Approach (ICD-10-PCS; 2019-01-27)
DX: O13.4 Gestational [pregnancy-induced] hypertension without significant proteinuria, complicating childbirth (principal); O34.219 Maternal care for unspecified type scar from previous cesarean delivery; Z3A.38 38 weeks gestation of pregnancy; Z37.0 Single live birth; Z30.2 Encounter for sterilization
CPT/HCPCS: 36415; 80053; 81003; 82570; 84156; 85025; 88302-TC; 88307-TC